=== PATIENT | female | born 1985 | race Caucasian/White ===

== ENCOUNTER 2017-06-22 00:22 | Inpatient (IN) | payer OTHER ==
[2017-06-22] MEDS ORDERED: OXYTOCIN 20 UNIT in LR 1,000 ML IV PRN (00:59)
[2017-06-22] MEDS ORDERED: LR 1,000 ML IV PRN (00:59)
[2017-06-22] MEDS ORDERED: OLIVE OIL 118 ML BTL MISC PRN (00:59)
[2017-06-22] MEDS ORDERED: EPSOM SALT 454 GM TP PRN (00:59)
[2017-06-22] MEDS ORDERED: AMPICILLIN SODIUM 2 GM in NS 100 ML IV ONE (00:59)
[2017-06-22] MEDS ORDERED: TERBUTALINE SULFATE 1 MG/ML VIAL IV PRN (00:59)
[2017-06-22 01:30] LABS: % IMMATURE GRANULYOCYTES 0.6 % (0.0-1.1); ABSOLUTE IMMATURE GRANULOCYTES 0.09 10^3/uL (0.00-0.10); ADD DIFF? NO; ADD MORPH? NO; ADD SCAN? NO; ATYPICAL LYMPHOCYTE FLAG 0 (0-99); FRAGMENT RBC FLAG 0 (0-99); HEMATOCRIT 39.6 % (38.0-47.0); HEMOGLOBIN 13.6 g/dL (12.6-16.3); LEFT SHIFT FLG 10 (0-99); LIPEMIA HEMOLYSIS FLAG 90 (0-99); MEAN CELL HEMOGLOBIN 31.1 pg (27.9-34.1); MEAN CELL HEMOGLOBIN CONCENTR. 34.3 g/dL (32.4-36.7); MEAN CELL VOLUME 90.6 fL (81.5-99.8); PLATELET CLUMPS FLAG 0 (0-99); PLATELET COUNT 209 10^3/uL (150-400); RED BLOOD CELL COUNT 4.37 10^6/uL (4.18-5.33); RED CELL DISTRIBUTION WIDTH 12.7 % (11.5-15.2)
--- NOTE | 2017-06-22 02:40 | PDGENHP ---
History and Physical - Chief Complaint contractions every 5 minutes - History of Present Illness This is a [id number] with IUP@ 39-3wks that presents to L&D with complaints of contractions increasing in intensity and frequency. She reports pain with contractions 6/10. She denies any LOF, VB. She reports a decrease in FM. History Information - Allergies/Home Medication List Allergies/Adverse Reactions: No Known Allergies Allergy (Unverified 06/22/17 00:58) I have personally reviewed and updated: family history, medical history, social history, surgical history - Social History Smoking Status: Never smoked Review of Systems Review of Systems: Physical Exam Physical Exam: Constitutional: no apparent distress, appears nourished Eyes: PERRL Ears, Nose, Mouth, Throat: hearing normal, ears appear normal Cardiovascular: regular rate and rhythym, no murmur, rub, or gallop Respiratory: no respiratory distress, no rales or rhonchi Gastrointestinal: soft, non-tender abdomen Skin: warm, normal color Musculoskeletal: full muscle strength Neurologic: AAOx3 Psychiatric: interacting appropriately, not anxious Lab Data & Imaging Review 06/22/17 01:15 WBC 14.32 10^3/uL (3.80-9.50) H 06/22/17 01:15 RBC 4.37 10^6/uL (4.18-5.33) 06/22/17 01:15 Hgb 13.6 g/dL (12.6-16.3) 06/22/17 01:15 Hct 39.6 % (38.0-47.0) 06/22/17 01:15 MCV 90.6 fL (81.5-99.8) 06/22/17 01:15 MCH 31.1 pg (27.9-34.1) 06/22/17 01:15 MCHC 34.3 g/dL (32.4-36.7) 06/22/17 01:15 RDW 12.7 % (11.5-15.2) 06/22/17 01:15 Plt Count 209 10^3/uL (150-400) 06/22/17 01:15 MPV 10.0 fL (8.7-11.7) 06/22/17 01:15 Neut % (Auto) 82.9 % (39.3-74.2) H 06/22/17 01:15 Lymph % (Auto) 11.5 % (15.0-45.0) L 06/22/17 01:15 Piute % (Auto) 4.6 % (4.5-13.0) 06/22/17 01:15 Eos % (Auto) 0.1 % (0.6-7.6) L 06/22/17 01:15 Baso % (Auto) 0.3 % (0.3-1.7) 06/22/17 01:15 Nucleat RBC Rel Count 0.0 % (0.0-0.2) 06/22/17 01:15 Absolute Neuts (auto) 11.86 10^3/uL (1.70-6.50) H 06/22/17 01:15 Absolute Lymphs (auto) 1.65 10^3/uL (1.00-3.00) 06/22/17 01:15 Absolute Monos (auto) 0.66 10^3/uL (0.30-0.80) 06/22/17 01:15 Absolute Eos (auto) 0.02 10^3/uL (0.03-0.40) L 06/22/17 01:15 Absolute Basos (auto) 0.04 10^3/uL (0.02-0.10) 06/22/17 01:15 Absolute Nucleated RBC 0.00 10^3/uL (0-0.01) 06/22/17 01:15 Immature Gran % 0.6 % (0.0-1.1) 06/22/17 01:15 Immature Gran # 0.09 10^3/uL (0.00-0.10) 06/22/17 01:15 Patient ABO/Rh O POSITIVE 06/22/17 01:15 Antibody Screen NEGATIVE 06/22/17 01:15 Assessment & Plan Assessment: [id number] with IUP@39-3wks early labor GBS+ cat 1 FHR tracing Plan: Admit to L&D IV abx IA hydrotherapy anticipate
[2017-06-22] MEDS ORDERED: LIDOCAINE 1% 300 MG/30 ML SDV ONE (03:20)
[2017-06-22] MEDS ORDERED: OXYTOCIN 10 UNIT/ML VIAL ONE (03:20)
[2017-06-22] MEDS ORDERED: MISOPROSTOL 200 MCG TAB ONE (03:20)
[2017-06-22] MEDS ORDERED: AMMONIA AROMATIC 1 EACH AMP IH ONE (03:20)
[2017-06-22] MEDS ORDERED: OLIVE OIL 118 ML BTL ONE (03:20)
[2017-06-22] MEDS ORDERED: TERBUTALINE SULFATE 1 MG/ML VIAL ONE (03:20)
[2017-06-22] MEDS ORDERED: ACETAMINOPHEN 325 MG TAB PO PRN (04:20)
[2017-06-22] MEDS ORDERED: HYDROCORTISONE 0.5% CREAM TP PRN (04:20)
[2017-06-22] MEDS ORDERED: HYDROCODONE/APAP 5/325 TAB PO PRN (04:20)
[2017-06-22] MEDS ORDERED: SIMETHICONE 80 MG TAB CHEW PO PRN (04:20)
--- NOTE | 2017-06-22 04:20 | OBDEL ---
Info Type: Vaginal Presentation at Delivery: Vertex L&D Analgesia/Anesthesia Type: None GBS+: Yes Antibiotic Used for + GBS: Ampicillin Intrapartum Medications: Discontinued Medications Generic Name Dose Route Start Last Admin Trade Name Addison PRN Reason Stop Dose Admin Ampicillin Sodium 2 gm/ Sodium 110 mls @ 220 mls/hr 06/22/17 00:59 06/22/17 01:29 Chloride IV 06/22/17 01:28 110 mls ONCE ONE Administration Protocol - Hospital Course Intrapartum: 06/22/17 04:17 Spontaneous Labor/SROM- clear Indications for Delivery: Spontaneous Labor, SROM Vaginal Delivery - Delivery Provider Delivery Physician/CNM: Ekta Finch - Labor and Delivery Onset of Contractions Date: 06/22/17 Onset of Contractions Time: 20:30 Onset of Contractions Type: Spontaneous Rupture of Membranes Date: 06/22/17 Rupture of Membranes Time: 02:00 Rupture of Membranes Type: Spontaneous Amniotic Fluid Color: Clear Dilation Complete Date: 06/22/17 Dilation Complete Time: 03:25 Placenta Delivery Date: 06/22/17 Placenta Delivery Time: 03:49 Total Hours of Labor: -16 Laceration: 1st Degree Repair: 3-0, Vicryl Vaginal Sponge Count Correct: Yes Vaginal Needle Count Correct: Yes Vaginal Sweep Performed: Yes Delivery Events: None Delivery Comment: placenta delivered prior to clamping/cutting of cord (tammy ) Data Abdullahi Delivery Date: 06/22/17 Delivery Time: 03:45 LUCILLE: 06/26/17 Gestational Age: 39 week(s) and 3 day(s) Sex of Infant: Male Score (1 Min): 8 Score (5 Min): 9 ICD10 Worksheet Patient Problems: Problems Problem Status Onset First degree perineal laceration during delivery Acute (normal spontaneous vaginal delivery) Acute Onset (spontaneous) of labor after 37 completed weeks of gestation but before 39 completed weeks gestation, with delivery by (planned) section, delivered, with mention of complication Acute SROM (spontaneous rupture of membranes) Acute - ICD10 Problem Qualifiers (1) Onset (spontaneous) of labor after 37 completed weeks of gestation but before 39 completed weeks gestation, with delivery by (planned) section , delivered, with mention of complication (2) SROM (spontaneous rupture of membranes) (3) (normal spontaneous vaginal delivery) (4) First degree perineal laceration during delivery
[2017-06-22] MEDS: IBUPROFEN 600 MG TAB PO PRN ×4 (04:54→23:11)
[2017-06-22] MEDS ORDERED: AMPICILLIN SODIUM 1 GM in NS 100 ML IV SCH (04:59)
[2017-06-22] MEDS: DOCUSATE SODIUM 100 MG CAP PO PRN (20:19)
[2017-06-23 10:15] VITALS: BP 102/66; PULSE 90; RESP 18; TEMP 98.4; O2SAT 93
[2017-06-23] MEDS: DOCUSATE SODIUM 100 MG CAP PO PRN (10:25)
--- NOTE | 2017-06-23 12:15 | OBPP ---
Progress Note Assessment/Plan: Assessment: 31 yo WF PPD#1 s/p doing well. Plan: Discharge home today. 06/23/17 12:13 Subjective/ Course: 06/23/17 12:14 Patient is doing well this morning. She is ambulating, tolerating mild pain without medication at this time. She reports minimal lochia. She is . She desires discharge home today. Objective: 06/22/17 01:15 Patient ABO/Rh O POSITIVE 06/22/17 01:15 Temp Pulse Resp BP Pulse Ox 36.9 C 90 18 102/66 93 06/23/17 09:40 06/23/17 09:40 06/23/17 09:40 06/23/17 09:40 06/23/17 09:40 NAD Normocephalic Lungs clear Heart RRR no m/r/g Abdomen soft, FF Extremities no excessive edema Uterine Position/Fundal Height: Umbilicus -2 Uterine Tone: Firm
--- NOTE | 2017-06-23 12:16 | OBGCSDC ---
General Delivery Information - General Info : 4 Para: 3 Abortions: 1 Type: Vaginal L&D Analgesia/Anesthesia Type: Local Admission Date: 06/22/17 Labs: Patient ABO/Rh O POSITIVE 06/22/17 01:15 Hct 39.6 % (38.0-47.0) 06/22/17 01:15 - Hospital Course Intrapartum: 06/22/17 04:17 Spontaneous Labor/SROM- clear : 06/23/17 12:14 Patient is doing well this morning. She is ambulating, tolerating mild pain without medication at this time. She reports minimal lochia. She is . She desires discharge home today. Vaginal - Delivery Provider Delivery Physician/CNM: Ekta Finch - Diagnosis Labor: Spontaneous Rupture of Membranes Type: Spontaneous Amniotic Fluid Color: Clear Laceration: 1st Degree Repair: 3-0, Vicryl Delivery Events: None Data Abdullahi Delivery Date: 06/22/17 Delivery Time: 03:45 LUCILLE: 06/26/17 Gestational Age: 39 week(s) and 4 day(s) Sex of : Male [place] Weight (gm): 0 g Score (1 Min): 8 Score (5 Min): 9 Discharge Information - Discharge Information Condition: Good Instruction/Follow Up: Four Weeks, Six Weeks
[2017-06-23] MEDS: IBUPROFEN 600 MG TAB PO PRN (12:22)
== END 2017-06-23 13:00 | disposition home or self-care (01) | DRG 775 ==
LOC: OBSVTOIN 00:22 → FLD 00:22 → FOB 11:06
PROVIDERS: ADMIT Advanced Practice Midwife; ATTEND Advanced Practice Midwife
DX: O75.82 Onset (spontaneous) of labor after 37 completed weeks of gestation but before 39 completed weeks gestation, with delivery by (planned) cesarean section (principal); O36.8130 Decreased fetal movements, third trimester, not applicable or unspecified; Z37.0 Single live birth; Z3A.39 39 weeks gestation of pregnancy; O99.824 Streptococcus B carrier state complicating childbirth; O70.0 First degree perineal laceration during delivery
CPT/HCPCS: J0290; J3105